=== PATIENT | male | born 1985 ===

== ENCOUNTER 2019-11-11 13:13 | Observation (INO) | payer MEDICAID ==
[2019-11-11] MEDS ORDERED: LORazepam 1 MG Tab PO ONE (13:16)
[2019-11-11] MEDS ORDERED: methylPREDNISolone Sodium Succinate 125 MG/2 ML SDV IVPUSH ONE (13:50)
[2019-11-11] MEDS ORDERED: methylPREDNISolone Sodium Succinate 125 MG/2 ML SDV ONE (14:10)
[2019-11-11] MEDS ORDERED: Ketorolac 30 MG/ML SDV IVPUSH ONE (14:14)
--- NOTE | 2019-11-11 14:15 | EDM.PDOC ---
ED HPI GENERAL MEDICAL PROBLEM - General Chief Complaint: General Stated Complaint: SORE THROAT Time Seen by Provider: 11/11/19 13:16 Source of Information: Reports: Patient History Limitations: Reports: No Limitations - History of Present Illness INITIAL COMMENTS - FREE TEXT/NARRATIVE: This patient presents to the ED for evaluation of a sore throat. He states his throat was a little scratchy last night and today when he woke up it was quite sore. He arrives stating he cannot breathe and was quite anxious. He denies fever, cough. Appetite has been good without vomiting or diarrhea. He states he is very anxious because he is quite worried about having COVID. States he just returned from a trip to the [facility] to "visit some people." Denies chronic health problems but states he thinks he has an anxiety disorder. He also states he is allergic to bee stings. Onset: Today, Sudden Duration: Getting Worse Location: Reports: Other (throat) Severity: Severe Worsens with: Reports: Breathing, Eating, Other (swallowing), Movement - Related Data Allergies Allergy/AdvReac Type Severity Reaction Status Date / Time bee venom protein (honey bee) Allergy Intermediate Airway Verified 11/11/19 14: 29 Tightness Past Medical History - Past Health History Medical/Surgical History: Denies Medical/Surgical History Social & Family History - Family History Family Medical History: Unobtainable HEENT: Reports: None Cardiac: Reports: None Respiratory: Reports: None GI: Reports: None : Reports: None Musculoskeletal: Reports: None Neurological: Reports: None Psychiatric: Reports: None Endocrine/Metabolic: Reports: Diabetes, type II Hematologic: Reports: None Immunologic: Reports: None Oncologic: Reports: None - Tobacco Use Smoking Status *Q: Current Every Day Smoker Years of Tobacco use: 25 Packs/Tins Daily: 0 Used Tobacco, but Quit: No Second Hand Smoke Exposure: Yes - Caffeine Use Caffeine Use: Reports: Coffee, Energy Drinks - Recreational Drug Use Recreational Drug Use: No ED ROS GENERAL - Review of Systems Review Of Systems: Comprehensive ROS is negative, except as noted in HPI. ED EXAM, GENERAL - Physical Exam Exam: See Below Exam Limited By: No Limitations General Appearance: Alert, Anxious, Severe Distress Eye Exam: Bilateral Eye: PERRL Ears: Normal External Exam Nose: Normal Inspection, Normal Mucosa, No Blood Throat/Mouth: Normal Inspection, Normal Oropharynx, Normal Voice, No Airway Compromise, Dysphagia, Other (patient able to speak in full sentences) Head: Atraumatic, Normocephalic Neck: Normal Inspection, Supple, Non-Tender, Full Range of Motion, Tender Lateral (particularly tender on right side; mild tenderness on left.). No: Lymphadenopathy (R), Lymphadenopathy (L) Respiratory/Chest: No Respiratory Distress, Lungs Clear, Normal Breath Sounds, No Accessory Muscle Use. No: Respiratory Distress, Decreased Breath Sounds, Stridor Neurological: Alert, Oriented Psychiatric: Anxious (states he is anxious about the pain and that he might have COVID) Skin Exam: Warm, Diaphoretic Course - Vital Signs Last Recorded V/S: Last Vital Signs Temp 37.0 C 11/11/19 15:15 Pulse 95 11/11/19 15:15 Resp 18 11/11/19 15:15 BP 142/72 H 11/11/19 15:15 Pulse Ox 90 L 11/11/19 15:15 - Orders/Labs/Meds Orders: Active Orders 24 hr Category Date Time Status Soft Tissue Neck wo Cont [CT] Stat Exams 11/11/19 13:15 Taken CORONAVIRUS COVID-19, DON Stat Lab 11/11/19 13:51 Ordered INFLUENZA A+B AG SCREEN [RM] Stat Lab 11/11/19 13:51 Ordered STREP SCREEN A RAPID [RM] Stat Lab 11/11/19 13:41 Ordered Ampicillin/Sulbactam Na [Unasyn] 3 gm Med 11/11/19 18:00 Active Sodium Chloride 0.9% [Normal Saline] 100 ml IV Q6HR Isolation [COMM] Routine Oth 11/11/19 13:51 Active Medication Orders Ampicillin Sodium/Sulbactam (Sodium 3 gm/ Sodium Chloride) 100 mls @ 100 mls/ hr IV Q6HR JAMES Last Admin: 11/11/19 15:52 Dose: 100 mls/hr Meds: Medications Generic Name Dose Route Start Last Admin Trade Name Freq PRN Reason Stop Dose Admin Ampicillin Sodium/Sulbactam 100 mls @ 100 mls/hr 11/11/19 18:00 11/11/19 15: 52 Sodium 3 gm/ Sodium Chloride IV 100 mls/hr Q6HR JAMES Administration Discontinued Medications Generic Name Dose Route Start Last Admin Trade Name Freq PRN Reason Stop Dose Admin Ampicillin Sodium/Sulbactam Sodium Confirm 11/11/19 15:29 11/11/19 15:44 Unasyn Administered 11/11/19 15:30 Not Given Dose 3 gm .ROUTE .STK-MED ONE Ceftriaxone Sodium 1 gm/ 50 mls @ 200 mls/hr 11/11/19 14:29 11/11/19 14:54 Sodium Chloride IV 11/11/19 14:43 200 mls/hr ONETIME ONE Administration Ketorolac Tromethamine 30 mg 11/11/19 14:14 11/11/19 14:25 Toradol IVPUSH 11/11/19 14:15 30 mg ONETIME ONE Administration Lorazepam 2 mg 11/11/19 13:16 11/11/19 13:51 Ativan PO 11/11/19 13:17 2 mg ONETIME ONE Administration Methylprednisolone Sodium Succinate 125 mg 11/11/19 13:50 11/11/19 14:11 Solu-Medrol IVPUSH 11/11/19 13:51 125 mg ONETIME ONE Administration Methylprednisolone Sodium Succinate Confirm 11/11/19 14:10 11/11/19 15:43 Solu-Medrol Administered 11/11/19 14:11 Not Given Dose 125 mg .ROUTE .STK-MED ONE - Re-Assessments/Exams Free Text/Narrative Re-Assessment/Exam: 11/11/19 14:21 Strep screen negative; COVID test pending. CT scan of soft tissues reveals thickened epiglottis suspicious for spiglottitis /supraglottitis Patient given Solu Medrol, 125 mg and Tordaol. We will hold in ED for 4 hours and reevaluate. 11/11/19 17:10 Patient sleeping with significant decrease in anxiety and some decrease in pain. No stridor heard; however, will admit observation overnight for continued airway monitoring. Departure - Departure Time of Disposition: 17:15 Disposition: Left Without Being Seen 07 Condition: Fair Clinical Impression: Epiglottitis - Discharge Information *PRESCRIPTION DRUG MONITORING PROGRAM REVIEWED*: No Referrals: PCP,None [Primary Care Provider] - Forms: ED Department Discharge Sepsis Event Note - Focused Exam Vital Signs: Vital Signs Temp Pulse Resp BP Pulse Ox 11/11/19 15:15 37.0 C 95 18 142/72 H 90 L 11/11/19 13:47 37.5 C 120 H 18 139/96 H 97 11/11/19 13:34 37.5 C 110 H 16 139/96 H 97 Date Exam was Performed: 11/11/19 Time Exam was Performed: 17:10 - My Orders Last 24 Hours: My Active Orders 11/11/19 13:15 Soft Tissue Neck wo Cont [CT] Stat 11/11/19 13:41 STREP SCREEN A RAPID [RM] Stat 11/11/19 13:51 CORONAVIRUS COVID-19, DON Stat INFLUENZA A+B AG SCREEN [RM] Stat Isolation [COMM] Routine 11/11/19 18:00 Ampicillin/Sulbactam Na [Unasyn] 3 gm Sodium Chloride 0.9% [Normal Saline] 100 ml IV Q6HR - Assessment/Plan Last 24 Hours: My Active Orders 11/11/19 13:15 Soft Tissue Neck wo Cont [CT] Stat 11/11/19 13:41 STREP SCREEN A RAPID [RM] Stat 11/11/19 13:51 CORONAVIRUS COVID-19, DON Stat INFLUENZA A+B AG SCREEN [RM] Stat Isolation [COMM] Routine 11/11/19 18:00 Ampicillin/Sulbactam Na [Unasyn] 3 gm Sodium Chloride 0.9% [Normal Saline] 100 ml IV Q6HR
[2019-11-11] MEDS ORDERED: cefTRIAXone 1 GM in Sodium Chloride 0.9% 50 ML IV ONE (14:29)
[2019-11-11] MEDS ORDERED: Ampicillin/Sulbactam Na 3 GM Vial ONE (15:29)
[2019-11-11] MEDS: Ampicillin/Sulbactam Na 3 GM in Sodium Chloride 0.9% 100 ML IV SCH ×3 (15:52→22:00)
[2019-11-11] MEDS ORDERED: Sodium Chloride 0.9% 10 ML Syringe FLUSH PRN (18:20)
[2019-11-11] MEDS ORDERED: Ibuprofen 800 MG Tab PO PRN (18:20)
[2019-11-11] MEDS ORDERED: Ondansetron 4 MG/2 ML SDV IV PRN (18:20)
[2019-11-11] MEDS ORDERED: Ketorolac 60 MG/2 ML SDV IVPUSH PRN (18:20)
[2019-11-11] MEDS ORDERED: LORazepam 1 MG Tab PO PRN (18:24)
[2019-11-11] MEDS ORDERED: Racepinephrine 2.25% 0.5 ML Neb Soln NEB PRN (18:25)
[2019-11-11] MEDS ORDERED: Sodium Chloride 0.9% Inhalation Soln 3 ML Neb INH PRN (18:25)
[2019-11-12] MEDS ORDERED: cefTRIAXone 1 GM in Sodium Chloride 0.9% 50 ML IV SCH (03:00)
[2019-11-12] MEDS: Ampicillin/Sulbactam Na 3 GM in Sodium Chloride 0.9% 100 ML IV SCH ×2 (03:37→09:53)
--- NOTE | 2019-11-12 09:18 | PCM.HP.2 ---
H&P History of Present Illness - General Date of Service: 11/11/19 Admit Problem/Dx: Admission Diagnosis/Problem Admission Diagnosis/Problem Epiglottitis This patient presents to the ED quite anxious stating he has a sore throat and cannot breathe. See ED notes. Source of Information: Patient History Limitations: Reports: No Limitations - History of Present Illness Onset of Symptoms: Reports: Today, Sudden Duration of Symptoms: Reports: Getting Worse Throat Pain Score (Numeric/FACES): 8 - Related Data Allergies/Adverse Reactions: Allergies Allergy/AdvReac Type Severity Reaction Status Date / Time bee venom protein (honey bee) Allergy Intermediate Airway Verified 11/11/19 14: 29 Tightness Past Medical History - Past Health History Medical/Surgical History: Denies Medical/Surgical History Social & Family History - Family History Family Medical History: Unobtainable HEENT: Reports: None Cardiac: Reports: None Respiratory: Reports: None GI: Reports: None : Reports: None Musculoskeletal: Reports: None Neurological: Reports: None Psychiatric: Reports: None Endocrine/Metabolic: Reports: Diabetes, type II Hematologic: Reports: None Immunologic: Reports: None Oncologic: Reports: None - Tobacco Use Smoking Status *Q: Current Every Day Smoker Years of Tobacco use: 25 Packs/Tins Daily: 0 Used Tobacco, but Quit: No Second Hand Smoke Exposure: Yes - Caffeine Use Caffeine Use: Reports: Coffee, Energy Drinks - Recreational Drug Use Recreational Drug Use: No H&P Review of Systems - Review of Systems: Review Of Systems: See Below General: Denies: Fever HEENT: Reports: Sore Throat. Denies: Dysphasia, Ear Pain, Post Nasal Drip, Sinus Congestion Pulmonary: Reports: Shortness of Breath. Denies: Wheezing Cardiovascular: Denies: Chest Pain, Palpitations Gastrointestinal: Reports: No Symptoms Musculoskeletal: Reports: No Symptoms Skin: Reports: No Symptoms Neurological: Reports: No Symptoms Exam - Exam Exam: See Below - Vital Signs Vital Signs: Last Vital Signs Temp 36.2 C 11/12/19 07:55 Pulse 66 11/12/19 07:55 Resp 16 11/12/19 07:55 BP 124/66 11/12/19 07:55 Pulse Ox 98 11/12/19 07:55 - Exam Quality Assessment: No: Supplemental Oxygen General: Alert, Oriented HEENT: PERRLA, Conjunctiva Clear, EOMI, Mucosa Moist & [place], Posterior Pharynx Clear, Pupils Equal, Pupils Reactive Neck: Supple, Trachea Midline. No: Lymphadenopathy Lungs: Clear to Auscultation, Normal Respiratory Effort Cardiovascular: Regular Rate, Regular Rhythm Back Exam: Normal Inspection Extremities: Normal Inspection, Normal Range of Motion, Normal Capillary Refill Skin: Warm, Dry, Intact Neuro Extensive - Mental Status: Alert, Oriented x3 Psychiatric: Alert, Normal Affect, Other (significant decrease in anxiety) Sepsis Event Note - Evaluation Sepsis Screening Result: No Definite Risk - Focused Exam Vital Signs: Vital Signs Temp Pulse Resp BP Pulse Ox 11/12/19 07:55 36.2 C 66 16 124/66 98 11/12/19 04:00 36.6 C 94 14 114/60 95 11/12/19 00:00 78 16 94 L Date Exam was Performed: 11/12/19 Time Exam was Performed: 09:13 Problem List Initiated/Reviewed/Updated: Yes Orders Last 24hrs: Active Orders 24 hr Category Date Time Status Patient Status [ADT] Routine ADT 11/11/19 18:20 Active Oxygen Therapy [RC] PRN Care 11/11/19 18:20 Active Pulse Oximetry [RC] CONTINUOUS Care 11/11/19 18:21 Active RT Aerosol Therapy [RC] ASDIRECTED Care 11/11/19 18:26 Active Ready for Discharge [RC] PER UNIT ROUTINE Care 11/12/19 09:11 Ordered VTE/DVT Education [RC] Per Unit Routine Care 11/11/19 18:20 Active Vital Signs [RC] 08,12,16,20,00,04 Care 11/11/19 18:20 Active Soft Tissue Neck wo Cont [CT] Stat Exams 11/11/19 13:15 Taken CORONAVIRUS COVID-19, DON Stat Lab 11/11/19 13:51 Ordered INFLUENZA A+B AG SCREEN [RM] Stat Lab 11/11/19 13:51 Ordered STREP SCREEN A RAPID [RM] Stat Lab 11/11/19 13:41 Ordered Ampicillin/Sulbactam Na [Unasyn] 3 gm Med 11/11/19 22:00 Active Sodium Chloride 0.9% [Normal Saline] 100 ml IV Q6H Ibuprofen [Motrin] Med 11/11/19 18:20 Active 800 mg PO Q6H PRN LORazepam [Ativan] Med 11/11/19 18:24 Active 1 mg PO Q6H PRN Ondansetron [Zofran] Med 11/11/19 18:20 Active 4 mg IV Q4H PRN Racepinephrine [S-2 2.25%] Med 11/11/19 18:25 Active 0.5 ml NEB ONETIME PRN Sodium Chloride 0.9% Med 11/11/19 18:25 Active 3 ml INH ASDIRECTED PRN Sodium Chloride 0.9% [Saline Flush] Med 11/11/19 18:20 Active 10 ml FLUSH ASDIRECTED PRN cefTRIAXone [Rocephin] 1 gm Med 11/12/19 03:00 Active Sodium Chloride 0.9% [Normal Saline] 50 ml IV Q12H Isolation [COMM] Routine Oth 11/11/19 13:51 Active Saline Lock Insert [OM.PC] Routine Oth 11/11/19 18:20 Ordered Resuscitation Status Routine Resus Stat 11/11/19 18:20 Ordered Medication Orders Ampicillin Sodium/Sulbactam (Sodium 3 gm/ Sodium Chloride) 100 mls @ 100 mls/ hr IV Q6H [facility] Last Admin: 11/12/19 03:37 Dose: 100 mls/hr Admin: 11/11/19 22:00 Dose: 100 mls/hr Ceftriaxone Sodium 1 gm/ (Sodium Chloride) 50 mls @ 100 mls/hr IV Q12H [facility] Last Admin: 11/12/19 03:31 Dose: 100 mls/hr Ibuprofen (Motrin) 800 mg PO Q6H PRN PRN Reason: Pain (mild 1-3) Lorazepam (Ativan) 1 mg PO Q6H PRN PRN Reason: Anxiety Ondansetron HCl (Zofran) 4 mg IV Q4H PRN PRN Reason: Nausea/Vomiting Racepinephrine (S-2 2.25%) 0.5 ml NEB ONETIME PRN PRN Reason: Other Sodium Chloride (Saline Flush) 10 ml FLUSH ASDIRECTED PRN PRN Reason: Keep Vein Open Sodium Chloride (Sodium Chloride 0.9%) 3 ml INH ASDIRECTED PRN PRN Reason: mix with racepinephrine neb
--- NOTE | 2019-11-12 09:21 | PCM.DCSUM1 ---
Discharge Summary - Hospital Course Free Text/Narrative:: Patient reports no pain this morning. He states he has no difficulty breathing, talking, or swallowing. Diagnosis: Stroke: No - Discharge Data Discharge Date: 11/12/19 Discharge Disposition: Home, Self-Care 01 Condition: Good - Referral to Home Health Primary Care Physician: PCP None - Patient Instructions Diet: Regular Diet as Tolerated Notify Provider of: Fever, Increased Pain, Nausea and/or Vomiting - Discharge Plan *PRESCRIPTION DRUG MONITORING PROGRAM REVIEWED*: No Forms: ED Department Discharge Referrals: PCP,None [Primary Care Provider] - - Discharge Summary/Plan Comment DC Time >30 min.: No - Patient Data Vitals - Most Recent: Last Vital Signs Temp 36.2 C 11/12/19 07:55 Pulse 66 11/12/19 07:55 Resp 16 11/12/19 07:55 BP 124/66 11/12/19 07:55 Pulse Ox 98 11/12/19 07:55 I&O - Last 24 hours: Intake & Output 11/11/19 11/12/19 11/12/19 22:59 06:59 14:59 Intake Total 150 250 Balance 150 250 Med Orders - Current: Current Medications Ampicillin Sodium/Sulbactam (Sodium 3 gm/ Sodium Chloride) 100 mls @ 100 mls/ hr IV Q6H [facility] Last Admin: 11/12/19 03:37 Dose: 100 mls/hr Ceftriaxone Sodium 1 gm/ (Sodium Chloride) 50 mls @ 100 mls/hr IV Q12H [facility] Last Admin: 11/12/19 03:31 Dose: 100 mls/hr Ibuprofen (Motrin) 800 mg PO Q6H PRN PRN Reason: Pain (mild 1-3) Lorazepam (Ativan) 1 mg PO Q6H PRN PRN Reason: Anxiety Ondansetron HCl (Zofran) 4 mg IV Q4H PRN PRN Reason: Nausea/Vomiting Racepinephrine (S-2 2.25%) 0.5 ml NEB ONETIME PRN PRN Reason: Other Sodium Chloride (Saline Flush) 10 ml FLUSH ASDIRECTED PRN PRN Reason: Keep Vein Open Sodium Chloride (Sodium Chloride 0.9%) 3 ml INH ASDIRECTED PRN PRN Reason: mix with racepinephrine neb Discontinued Medications Ampicillin Sodium/Sulbactam Sodium (Unasyn) Confirm Administered Dose 3 gm .ROUTE .STK-MED ONE Stop: 11/11/19 15:30 Last Admin: 11/11/19 15:44 Dose: Not Given Ampicillin Sodium/Sulbactam (Sodium 3 gm/ Sodium Chloride) 100 mls @ 100 mls/ hr IV Q6HR JAMES Last Admin: 11/11/19 18:22 Dose: Not Given Ceftriaxone Sodium 1 gm/ (Sodium Chloride) 50 mls @ 200 mls/hr IV ONETIME ONE Stop: 11/11/19 14:43 Last Admin: 11/11/19 14:54 Dose: 200 mls/hr Ketorolac Tromethamine (Toradol) 30 mg IVPUSH ONETIME ONE Stop: 11/11/19 14:15 Last Admin: 11/11/19 14:25 Dose: 30 mg Ketorolac Tromethamine (Toradol) 30 mg IVPUSH Q6H PRN PRN Reason: Pain (moderate 4-6) Stop: 11/11/19 18:22 Lorazepam (Ativan) 2 mg PO ONETIME ONE Stop: 11/11/19 13:17 Last Admin: 11/11/19 13:51 Dose: 2 mg Methylprednisolone Sodium Succinate (Solu-Medrol) 125 mg IVPUSH ONETIME ONE Stop: 11/11/19 13:51 Last Admin: 11/11/19 14:11 Dose: 125 mg Methylprednisolone Sodium Succinate (Solu-Medrol) Confirm Administered Dose 125 mg .ROUTE .STK-MED ONE Stop: 11/11/19 14:11 Last Admin: 11/11/19 15:43 Dose: Not Given - Exam Quality Assessment: Denies: Supplemental Oxygen General: Reports: Alert, Oriented HEENT: Reports: Pupils Equal, Pupils Reactive, EOMI, Mucous Membr. Moist/[place] Neck: Reports: Supple, Trachea Midline, No Thyromegaly. Denies: Lymphadenopathy Lungs: Reports: Clear to Auscultation, Normal Respiratory Effort Cardiovascular: Reports: Regular Rate, Regular Rhythm Back Exam: Reports: Normal Inspection Extremities: Normal Inspection, Normal Range of Motion, No Pedal Edema, Normal Capillary Refill Skin: Reports: Warm, Dry, Intact Psy/Mental Status: Reports: Alert, Normal Affect, Normal Mood
--- NOTE | 2019-11-12 20:12 | CT ---
DATE OF SERVICE: 11/11/2019 CLINICAL DATA: R/O abscess. UNENHANCED NECK CT: Multislice axial acquisition was performed without IV contrast. Axial images and sagittal and coronal reformations are reviewed. The parotid glands are partially cut off. The visualized portions of the parotid glands appear normal. The submandibular glands appear normal. The thyroid gland appears normal. The epiglottis does appear to be thickened. The aryepiglottic folds are also thickened. Epiglottitis should be considered. The pharynx, larynx, and airway otherwise are unremarkable. The vascular structures are unremarkable. There are nonspecific submandibular and deep cervical nodes. The largest is on the left measuring 13 mm in its short axis. These are probably reactive. The visualized lung apices are clear. The visualized maxillary sinuses appear unremarkable. IMPRESSION: Abnormal epiglottis as discussed above suspicious for epiglottitis. [id number] MTDD
== END 2019-11-12 11:18 | disposition home or self-care (01) ==
LOC: LB.ED 13:13 → LB.MS 17:16
PROVIDERS: ADMIT Nurse Practitioner; ATTEND Nurse Practitioner
DX: J05.10 Acute epiglottitis without obstruction (principal); F41.9 Anxiety disorder, unspecified; E11.9 Type 2 diabetes mellitus without complications; F17.210 Nicotine dependence, cigarettes, uncomplicated; Z20.828 Contact with and (suspected) exposure to other viral communicable diseases; Z91.030 Bee allergy status
CPT/HCPCS: 70490; 87430; 96365; 96366; 96367; 96375; 96376; 99217; 99218; 99284-25; A9270-GY; G0378; J0295; J0696; J1885; J2930; J7050; U0002